=== PATIENT | male | born 1980 ===

== ENCOUNTER 2016-08-17 00:27 | Emergency (ER) | payer SELFPAY ==
[2016-08-17] MEDS ORDERED: MECLIZINE HCL 25 MG TABLET ONE (01:29)
== END 2016-08-17 01:44 | disposition home or self-care (01) ==
LOC: ED 00:27
DX: R42 Dizziness and giddiness (principal); H93.11 Tinnitus, right ear; R11.0 Nausea
CPT/HCPCS: 99283 ×2; A9270